=== PATIENT | female | born 1935 | race Caucasian/White ===

== ENCOUNTER 2024-11-17 10:00 | Inpatient (IN) | payer OTHER, MEDICARE ==
[~2024-11-17] VITALS: Ht 157.5 cm; Wt 59.0 kg
[~2024-11-17 10:00] MED LIST: AMLO10TA80 MT; ATEN50TA MT; LISI20TA31 MT; LORA-250 PO; METF-414 MT
[2024-11-17 10:08] VITALS: O2SAT 98
[2024-11-17 11:23] LABS: BASOPHILS % 0.6 % (0.0-2.0); EOSINOPHILS % 0.5 % (0.0-5.0); HEMATOCRIT. 41.9 % (36.0-48.0); HEMOGLOBIN. 13.5 g/dL (12.0-16.0); LYMPHOCYTES % 23.9 % (20.0-50.0); MEAN PLATELET VOLUME 9.4 fl (7.4-10.4); MONOCYTES % 5.8 % (2.0-8.0); NEUTROPHILS % 69.2 % (40.0-76.0); PLATELET 298 x1000/uL (130-400); RED BLOOD CELL COUNT 4.57 mill/uL (4.2-5.4); RED CELL DISTRIBUTION WIDTH 16.2 % (11.6-14.6)
[2024-11-17 11:46] LABS: CREATININE 1.4 mg/dL (0.6-1.0); UREA NITROGEN BLOOD 25 mg/dL (9-23)
[2024-11-17 11:47] LABS: TROPONIN I HIGH SENSITIVITY 13 ng/L (3.0-34)
[2024-11-17] MEDS ORDERED: DOCUSATE SODIUM 100MG CAPSULE PO PRN (13:30)
[2024-11-17] MEDS ORDERED: GUAIFENESIN 200MG/10ML SUGAR FREE UDC PO PRN (13:30)
[2024-11-17] MEDS ORDERED: DEXTROSE 50% WATER 50ML SYRINGE IV PRN (13:30)
[2024-11-17] MEDS ORDERED: ACETAMINOPHEN 325MG TABLET PO PRN ×2 (13:30)
[2024-11-17] MEDS ORDERED: NITROGLYCERIN 0.4MG TABLET SL SL PRN (13:30)
[2024-11-17] MEDS ORDERED: ONDANSETRON HCL 4MG/2ML INJ IV PRN (13:30)
[2024-11-17] MEDS ORDERED: MAGNESIUM/ALUMINUM HYDROXIDE/SIMETHICONE 30ML UDC PO PRN (13:30)
[2024-11-17] MEDS ORDERED: IPRATROPIUM/ALBUTEROL 0.5-3(2.5)MG/3ML NEB HHN PRN (13:30)
[2024-11-17 13:38] LABS: TROPONIN I HIGH SENSITIVITY 13 ng/L (3.0-34)
[2024-11-17] MEDS: ASPIRIN 81MG EC TABLET PO SCH (14:23)
[2024-11-17] MEDS: SODIUM CHLORIDE 0.9% 1,000 ML IV SCH (14:23)
[2024-11-17 14:39] LABS: PHOSPHORUS 4.0 mg/dL (2.5-4.9)
[2024-11-17] MEDS: AMIODARONE 200MG TABLET PO SCH (14:56)
[2024-11-17 17:38] LABS: TROPONIN I HIGH SENSITIVITY 14 ng/L (3.0-34)
[2024-11-17] MEDS: BLOOD SUGAR DIAGNOSTIC STRIP TEST SCH (17:57)
[2024-11-17] MEDS: INSULIN LISPRO 100 UNITS/ML SUBCUT SCH (18:20)
[2024-11-17] MEDS ORDERED: ATROPINE SULFATE 1MG/ML VIAL IV PRN (20:15)
[2024-11-17] MEDS ORDERED: APIXABAN 5 MG TABLET PO SCH (21:00)
[2024-11-17] MEDS: APIXABAN 2.5 MG TABLET PO SCH (21:00)
[2024-11-17] MEDS ORDERED: METOPROLOL TARTRATE 50MG TABLET PO SCH ×2 (21:00)
[2024-11-17] MEDS: ATORVASTATIN CALCIUM 20MG TABLET PO SCH (21:00)
[2024-11-17 22:00] VITALS: BP 150/84; PULSE 64; RESP 17; TEMP 36.9; O2SAT 95
[2024-11-17 23:00] VITALS: BP 150/84; PULSE 64; RESP 17; TEMP 36.9184
[2024-11-18] VITALS: BP 132/83; PULSE 60; RESP 16; TEMP 35.8; O2SAT 94
[2024-11-18 04:00] VITALS: BP 121/61; PULSE 53; RESP 17; TEMP 36.3; O2SAT 94
[2024-11-18 08:00] VITALS: BP 156/68; PULSE 68; RESP 17; TEMP 35.7; O2SAT 95
[2024-11-18 10:55] LABS: BASOPHILS % 0.6 % (0.0-2.0); EOSINOPHILS % 0.4 % (0.0-5.0); HEMATOCRIT. 38.4 % (36.0-48.0); HEMOGLOBIN. 12.5 g/dL (12.0-16.0); LYMPHOCYTES % 14.9 % (20.0-50.0); MEAN PLATELET VOLUME 9.5 fl (7.4-10.4); MONOCYTES % 6.0 % (2.0-8.0); NEUTROPHILS % 78.1 % (40.0-76.0); PLATELET 249 x1000/uL (130-400); RED BLOOD CELL COUNT 4.20 mill/uL (4.2-5.4); RED CELL DISTRIBUTION WIDTH 15.9 % (11.6-14.6)
[2024-11-18 11:29] LABS: CREATININE 1.0 mg/dL (0.6-1.0)
[2024-11-18 11:30] LABS: TRIGLYCERIDE 158.0 mg/dL (0-150); UREA NITROGEN BLOOD 19.0 mg/dL (9-23)
[2024-11-18 11:31] LABS: LDL CHOLESTEROL 95.0 mg/dL (5-100)
[2024-11-18 12:00] VITALS: BP 154/77; PULSE 67; RESP 18; TEMP 36.5; O2SAT 93
[2024-11-18] MEDS ORDERED: LORA-250 PO (12:54)
[2024-11-18] MEDS ORDERED: GABA-529 PO (12:54)
[2024-11-18] MEDS ORDERED: AMI2 PO (12:54)
[2024-11-18] MEDS ORDERED: APIX5TAB PO (12:54)
[2024-11-18] MEDS ORDERED: BISO5TAB13 PO (12:54)
[2024-11-18] MEDS ORDERED: EMPA25TA PO (12:54)
[2024-11-18] MEDS: LORAZEPAM 1MG TABLET PO SCH (13:45)
[2024-11-18] MEDS: GABAPENTIN 100MG CAPSULE PO SCH (15:11)
[2024-11-18 16:00] VITALS: BP 154/76; PULSE 62; RESP 18; TEMP 36.2; O2SAT 92
[2024-11-18 19:51] VITALS: BP 146/70; PULSE 61; RESP 18; TEMP 97.9
[2024-11-18] MEDS ORDERED: APIXABAN 5 MG TABLET PO SCH (21:00)
[2024-11-19] MEDS ORDERED: BLOOD SUGAR DIAGNOSTIC STRIP TEST SCH (06:45)
== END 2024-11-18 20:43 | disposition short-term general hospital (02) | DRG 311 ==
LOC: ER 10:00 → 5WST 12:36 → ENRESERV 20:16
PROVIDERS: ADMIT Hospitalist; ATTEND Hospitalist
DX: I20.0 Unstable angina (principal); N17.9 Acute kidney failure, unspecified; E11.9 Type 2 diabetes mellitus without complications; F41.9 Anxiety disorder, unspecified; I10 Essential (primary) hypertension; I44.7 Left bundle-branch block, unspecified; I48.91 Unspecified atrial fibrillation; R00.1 Bradycardia, unspecified; T50.995A Adverse effect of other drugs, medicaments and biological substances, initial encounter; J45.909 Unspecified asthma, uncomplicated; Z79.01 Long term (current) use of anticoagulants; Z79.82 Long term (current) use of aspirin; Z79.899 Other long term (current) drug therapy; Y92.89 Other specified places as the place of occurrence of the external cause
CPT/HCPCS: 36415; 71045; 80048; 80061; 82550; 82962; 83036; 83735; 83880; 84100; 84443; 84484; 85025; 93005; 99285; A4606